=== PATIENT | female | born 1960 | race Caucasian/White ===

== ENCOUNTER 2017-02-24 17:34 | Emergency (ER) | payer SELFPAY ==
[~2017-02-24] VITALS: Ht 165.1 cm; Wt 92.5 kg
[2017-02-24 21:44] VITALS: BP 159/99
== END 2017-02-24 21:44 | disposition home or self-care (01) ==
LOC: ED 17:34
DX: J20.9 Acute bronchitis, unspecified (principal)
CPT/HCPCS: J7512